=== PATIENT | female | born 1950 | race Caucasian/White ===

== ENCOUNTER → 2025-01-11 | Outpatient (REF) | payer MEDICARE | LOC: CT 15:03 | PROVIDERS: ATTEND Nurse Practitioner Family | DX: L97.312 Non-pressure chronic ulcer of right ankle with fat layer exposed (principal) ==

== ENCOUNTER 2025-02-19 10:00 | Outpatient (RCR) | payer MEDICARE | END 2025-02-21 | LOC: WCC 10:00 | PROVIDERS: ATTEND Nurse Practitioner Family | DX: L97.312 Non-pressure chronic ulcer of right ankle with fat layer exposed (principal); R60.0 Localized edema; B95.7 Other staphylococcus as the cause of diseases classified elsewhere ==

== ENCOUNTER 2025-03-20 09:30 | Outpatient (RCR) | payer MEDICARE ==
[~2025-03-20 09:30] MED LIST: LIDOCAINE VISC 2% SOLN 15 ML UDC ONE; LIDOCAINE/PRILOCAINE 2.5-2.5% KIT ONE; MINERAL OIL/PETROLAT/GLYCERI 6OZ BTL ONE
== END 2025-03-24 ==
LOC: WCC 09:30
PROVIDERS: ATTEND Nurse Practitioner Family
DX: L97.312 Non-pressure chronic ulcer of right ankle with fat layer exposed (principal); R60.0 Localized edema

== ENCOUNTER 2025-04-15 09:00 | Outpatient (RCR) | payer MEDICARE | END 2025-04-23 | LOC: WCC 09:00 | PROVIDERS: ATTEND Plastic Surgery | DX: L97.312 Non-pressure chronic ulcer of right ankle with fat layer exposed (principal); R60.0 Localized edema ==